=== PATIENT | male | born 1995 | race Caucasian/White ===

== ENCOUNTER 2021-08-31 17:21 | Emergency (ER) | payer BC ==
[2021-08-31] MEDS ORDERED: Sodium Chloride 0.9% 2.5 ML Syringe FLUSH PRN (17:36)
[2021-08-31] MEDS ORDERED: Sodium Chloride 0.9% 10 ML Syringe FLUSH PRN (17:36)
[2021-08-31] MEDS ORDERED: Sodium Chloride 0.9% 1,000 ML IV ONE (17:36)
[2021-08-31] MEDS ORDERED: Albuterol/Ipratropium 3.0-0.5 MG/3 ML Neb Soln NEB ONE (17:36)
[2021-08-31] MEDS ORDERED: Dexamethasone 10 MG/ML SDV IVPUSH ONE (17:36)
[2021-08-31 18:22] LABS: CORONAVIRUS COVID-19 NAA NEGATIVE (NEGATIVE); INFLUENZA A NAA NEGATIVE (NEGATIVE); INFLUENZA B NAA NEGATIVE (NEGATIVE)
[2021-08-31 18:39] LABS: CARBON DIOXIDE,CO2 27.4 mmol/L (21.0-32.0); POTASSIUM,K 4.2 mmol/L (3.5-5.1)
[2021-08-31] MEDS ORDERED: Iopamidol 755 MG/ML 500 ML Multipack Bottle IVPUSH STA (18:58)
[2021-08-31] MEDS ORDERED: Piperacillin/Tazobactam 4.5 GM in Sodium Chloride 0.9% 100 ML IV ONE (19:50)
[2021-08-31] MEDS ORDERED: VANCOMYCIN 1.75 GM/350 ML IV ONE (20:00)
[2021-08-31] MEDS ORDERED: VANCOmycin 1.75 GM/350 ML 1.75 GM in Premix Bag 1 BAG IV ONE (20:27)
[2021-08-31] MEDS ORDERED: Sodium Chloride 0.9% 1,000 ML IV SCH (20:30)
== END 2021-08-31 21:11 ==
LOC: MW.ED 17:21
DX: J98.2 Interstitial emphysema (principal); R77.8 Other specified abnormalities of plasma proteins; I10 Essential (primary) hypertension; E11.9 Type 2 diabetes mellitus without complications; Z88.0 Allergy status to penicillin; Z20.822 Contact with and (suspected) exposure to COVID-19
CPT/HCPCS: 0240U; 36415; 71045; 71275; 80053; 83605; 83880; 84484; 85025; 85379; 87040; 93005; 96365; 96368; 96375; 99285; J1100; J2543; J3370; J3490; J7030; Q9967; 93010; 99291; J7620-GY